=== PATIENT | male | born 1990 | race Caucasian/White ===

== ENCOUNTER 2019-01-13 21:26 | Emergency (ER) | payer MEDICAID ==
[~2019-01-13] VITALS: Ht 172.7 cm; Wt 85.9 kg
[2019-01-13 21:34] VITALS: BP 144/73
[2019-01-13] MEDS ORDERED: acetaminophen 325mg tablet PO ONE (21:40)
[2019-01-13] MEDS ORDERED: ketorolac trometh inj. 60 MG/2 ML VIAL IM ONE (21:40)
[2019-01-13] MEDS ORDERED: ACET-812 PO (22:01)
== END 2019-01-13 22:08 | disposition home or self-care (01) ==
LOC: ER 21:26
DX: M25.512 Pain in left shoulder (principal); M54.2 Cervicalgia; I45.6 Pre-excitation syndrome; V49.59XA Passenger injured in collision with other motor vehicles in traffic accident, initial encounter; Y93.89 Activity, other specified; Y92.413 State road as the place of occurrence of the external cause; Y99.9 Unspecified external cause status
CPT/HCPCS: 71045; 93005; 96372; 99284; J1885

== ENCOUNTER 2019-06-23 21:46 | Emergency (ER) | payer MEDICAID ==
[~2019-06-23] VITALS: Ht 170.2 cm; Wt 81.4 kg
[~2019-06-23 21:46] MED LIST: ACET-812 PO; PENI500T2 PO
[2019-06-23] MEDS ORDERED: ondansetron 4mg rapidly disintigrating tab PO ONE (22:00)
[2019-06-23] MEDS ORDERED: HYDROcodone/acetaminophen 5mg/325mg tablet PO ONE (22:00)
[2019-06-23] MEDS ORDERED: IBUP-1984 PO (22:05)
[2019-06-23] MEDS ORDERED: PENI500T2 PO (22:05)
[2019-06-23] MEDS ORDERED: BUPIVAcaine 0.5% W/EPI /PF 30ml vial IJ STA (22:13)
[2019-06-23 22:57] VITALS: BP 125/70
== END 2019-06-23 22:59 | disposition home or self-care (01) ==
LOC: ER 21:46
DX: K02.9 Dental caries, unspecified (principal); K04.7 Periapical abscess without sinus; Z72.89 Other problems related to lifestyle; Z79.899 Other long term (current) drug therapy
CPT/HCPCS: 64400; 99284

== ENCOUNTER 2019-07-03 06:33 | Emergency (ER) | payer MEDICAID ==
[~2019-07-03] VITALS: Ht 170.2 cm; Wt 81.0 kg
[2019-07-03 06:36] VITALS: BP 143/93
[2019-07-03] MEDS ORDERED: ketorolac trometh inj. 60 MG/2 ML VIAL IM ONE (06:50)
== END 2019-07-03 07:01 | disposition home or self-care (01) ==
LOC: ER 06:34
DX: K02.9 Dental caries, unspecified (principal); F17.200 Nicotine dependence, unspecified, uncomplicated; Z72.89 Other problems related to lifestyle
CPT/HCPCS: 96372; 99283; J1885

== ENCOUNTER 2019-09-16 18:52 | Emergency (ER) | payer MEDICAID ==
[~2019-09-16] VITALS: Ht 170.2 cm; Wt 79.5 kg
[~2019-09-16 18:52] MED LIST changes: -PENI500T2 PO
[2019-09-16] MEDS ORDERED: ketorolac tromethamine 15mg/ml inj. IM ONE (20:20)
[2019-09-16] MEDS ORDERED: IBUP-1984 PO (20:55)
[2019-09-16 21:01] VITALS: BP 123/67
== END 2019-09-16 21:07 | disposition home or self-care (01) ==
LOC: ER 18:53
DX: S20.212A Contusion of left front wall of thorax, initial encounter (principal); R06.02 Shortness of breath; R07.81 Pleurodynia; Z72.89 Other problems related to lifestyle; Z79.899 Other long term (current) drug therapy; X58.XXXA Exposure to other specified factors, initial encounter; Y93.89 Activity, other specified; Y92.89 Other specified places as the place of occurrence of the external cause; Y99.8 Other external cause status
CPT/HCPCS: 71046; 71250; 96372; 99284; J1885

== ENCOUNTER 2023-04-09 20:23 | Emergency (ER) | payer BC, MEDICAID ==
[~2023-04-09] VITALS: Ht 170.2 cm; Wt 93.0 kg
[2023-04-09 20:25] VITALS: TEMP 98
[2023-04-09 21:32] VITALS: BP 147/114; PULSE 119; RESP 16; O2SAT 96
== END 2023-04-09 22:02 | disposition home or self-care (01) ==
LOC: ER 20:24
DX: S62.396A Other fracture of fifth metacarpal bone, right hand, initial encounter for closed fracture (principal); X58.XXXA Exposure to other specified factors, initial encounter; Y93.89 Activity, other specified; Y92.89 Other specified places as the place of occurrence of the external cause; Y99.8 Other external cause status
CPT/HCPCS: 29125; 73130; 99283